=== PATIENT | female | born 1990 | race African-American/Black ===

== ENCOUNTER 2023-10-08 15:07 | Emergency (ER) | payer MEDICAID, OTHER ==
[~2023-10-08] VITALS: Ht 157.5 cm; Wt 50.0 kg
[~2023-10-08 15:07] MED LIST: albuterol
[2023-10-08 15:16] VITALS: BP 134/93; PULSE 96; RESP 16; TEMP 98.5; O2SAT 99
[2023-10-08] MEDS ORDERED: P50 MT (15:36)
[2023-10-08] MEDS ORDERED: ALBU2.5V13 NEB (15:36)
[2023-10-08] MEDS ORDERED: [UNRECOGNIZED DRUG - CODE] MC (15:36)
[2023-10-08] MEDS ORDERED: ALBU6.7H15 INH (15:36)
== END 2023-10-08 15:49 | disposition home or self-care (01) ==
LOC: ER 15:07
DX: J45.901 Unspecified asthma with (acute) exacerbation (principal); Z76.0 Encounter for issue of repeat prescription
CPT/HCPCS: 99283